=== PATIENT | male | born 1990 | race Caucasian/White ===

== ENCOUNTER 2022-11-19 14:26 | Emergency (ER) | payer MEDICAID, SELFPAY ==
[2022-11-19 14:45] VITALS: BP 121/74; BP 122/80; PULSE 77; PULSE 86; RESP 16; TEMP 37.2; O2SAT 96; BMI 23.8
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
[2022-11-19 14:57] LABS: MANUAL DIFF FLAG NO
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
[2022-11-19 15:03] LABS: Basophils Absolute Auto 0.1 X10*3/uL (0.0-0.2); Basophils Percent Auto 0.5 % (0-2); Eosinophils Absolute Auto 0.1 X10*3/uL (0.0-0.4); Eosinophils Percent Auto 1.1 % (0-4); Hematocrit 42.7 % (42.0-52.0); Imm Gran Abs Auto 0.05 X10*3/uL (0.00-0.03); Imm Gran Pct Auto 0.4 % (0.0-0.4); Lymphocytes Absolute Auto 2.1 X10*3/uL (1.2-4.9); Lymphocytes Percent Auto 15.6 % (20-40); Mean Corpuscular HGB Conc 32.8 g/dl (31.0-36.0); Mean Corpuscular Hemoglobin 28.9 pg (27.0-33.0); Mean Corpuscular Volume 88.2 fL (80.0-98.0); Mean Platelet Volume 9.4 fL (9.4-12.4); Monocytes Absolute Auto 0.6 X10*3/uL (0.1-1.2); Monocytes Percent Auto 4.7 % (2-11); Neutrophils Absolute Auto 10.3 x10*3/uL (2.0-8.3); Neutrophils Percent Auto 77.7 % (45-73); Platelet Count 363 X10*3/uL (160-400); Red Blood Count 4.84 X10*6/uL (4.60-5.80); Red Cell Distribution Width 13.3 % (11.0-16.0); White Blood Count 13.2 X10*3/uL (4.8-10.8)
[2022-11-19] MEDS: Diphth,Pertus(ACell),Tet Adult 0.5 ML SYRINGE IM (15:12)
[2022-11-19] MEDS: 0.9 % Sodium Chloride 1,000 ML 999 ML IVCONT (15:12)
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
[2022-11-19] MEDS: Piperacillin Sodium/Tazobactam 3.375 GM in 0.9 % Sodium Chloride 50 ML IV (15:13)
[2022-11-19 15:34] LABS: Alanine Aminotransferase 20 U/L (0-40); Albumin Level 3.7 g/dL (3.5-5.0); Alkaline Phosphatase 98 U/L (39-117); Anion Gap 15 (12-20); Aspartate Amino Transferase 27 U/L (5-37); Bilirubin Direct < 0.2 mg/dL (0.0-0.5); Bilirubin Total 0.5 mg/dL (0.0-1.0); Blood Urea Nitrogen 9 mg/dL (9-16); Calcium 9.2 mg/dL (8.4-10.2); Carbon Dioxide 20 mmol/L (22-29); Chloride 107 mmol/L (96-108); Creatinine Clr Calc Pharmacy 114.2; Estimated Glomerular Filt Rate > 60; Glucose Random 149 mg/dL (60-115); Potassium 4.3 mmol/L (3.3-5.1); Sodium 138 mmol/L (135-145); Total Protein 6.4 g/dL (6.5-8.0)
== END 2022-11-19 16:52 | disposition short-term general hospital (02) ==
PROVIDERS: Emergency Provider Emergency Medicine
DX: S00.81XA Abrasion of other part of head, initial encounter (principal); R51.9 Headache, unspecified; X99.1XXA Assault by knife, initial encounter; Y93.9 Activity, unspecified; Y92.9 Unspecified place or not applicable; Y99.9 Unspecified external cause status; Z23 Encounter for immunization; Z79.899 Other long term (current) drug therapy
CPT/HCPCS: 36415; 80048; 80076; 85025; 90471; 90715; 96361; 96374; 99284; 99285; J2543

== ENCOUNTER 2023-04-16 10:00 | Emergency (ER) | payer MEDICAID, SELFPAY ==
--- NOTE | 2023-04-16 10:02 | ECG_ITS ---
Test Reason : CHEST PAIN Blood Pressure : / mmHG Vent. Rate : 066 BPM Atrial Rate : 066 BPM P-R Int : 130 ms QRS Dur : 094 ms QT Int : 390 ms P-R-T Axes : 063 078 063 degrees QTc Int : 408 ms Normal sinus rhythm Early repolarization Normal ECG When compared with ECG of 23-JUL-2018 14:19, No significant change was found Referred By: Generic ED Physician Electronically Signed By:NICKY MOON
[2023-04-16 10:07] VITALS: BP 108/66; BP 140/76; PULSE 63; PULSE 70; RESP 24; TEMP 37.2; O2SAT 100; O2SAT 98; BMI 21.8
[2023-04-16 10:16] VITALS: BP 118/73; PULSE 80; RESP 16; O2SAT 100
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
[2023-04-16] MEDS: Ondansetron ODT 4 MG TAB.RAPDIS TRANSLINGU (10:47)
--- NOTE | 2023-04-16 10:52 | ED_ITS ---
HPI - Psych General Chief Complaint: Weakness Stated Complaint: Gen weakness, found on loading dock per EMS Time Seen by Provider: 04/16/23 10:22 Source: patient Mode of arrival: EMS Limitations: no limitations History of Present Illness HPI Narrative: 32 yo male sniffing heroin and cocaine sleeping outside an abandoned buidling c/o being in withdrawal having aches and v/d - wants detox. he initially stated he used 2 days ago but then when I explained about precipitated withdrawal he states he thinks he might have used in the past day and cannot give me an accurate time. MD complaint: anxiety and substance abuse Onset (ago): month(s) Duration: intermittent History of same: Yes Relieving factors: none Exacerbating factors: drug use Context: recent drug abuse and significant life stressor Associated psychiatric symptoms: none Associated symptoms: nausea and vomiting Treatments prior to arrival: none Related Data Allergies Allergy/AdvReac Type Severity Reaction Status Date / Time No Known Allergies Allergy Verified 11/19/22 15:11 Review of Systems Review of Systems: Constitutional : No Weight loss, No Fever, No Chills Cardiovascular : No Chest Pain, No SOB, NoEdema Respiratory : No Cough, No Sputum, No Wheezing Gastrointestinal : Positive Nausea, Positive Vomiting, positive Diarrhea, no abdominal Pain, No Hematochezia, No Melena Genitourinary : No Dysuria, No Urinary Frequency, No Hematuria, No Urgency Musculoskeletal : No joint pain, pos Myalgias, No Joint Swelling Skin : No Skin Lesions, No rash Neuro : No Weakness, No Numbness, No Dizziness, No Headache Psych : No Anxiety/Panic, No Depression All other systems reviewed and are negative. ON LICENSE OF [facility] Past Medical History Attestation statement: The following information was validated with the patient. Medical History Asthma Substance abuse Social History Social History Alcohol intake: never Smoked in Last 30 Days: Yes Substance Use Type: Crack/Cocaine, Heroin and Marijuana Advance Directives: No Advance Directives Information Provided: Yes Physical Exam Vital Signs: Vital Signs: Last Vital Signs Temp 99.0 F 04/16/23 10:07 Pulse 57 04/16/23 14:36 Resp 16 04/16/23 14:36 BP 126/77 04/16/23 14:36 Pulse Ox 99 04/16/23 14:36 O2 Del Method Room Air 04/16/23 14:36 BMI result Body Mass Index 21.8 Appearance: Alert. Oriented X3. No acute distress. anxious appears uncomfort able. unkempt and disheveled Eyes: Pupils equal, round and reactive to light. ENT: Pharynx normal. Neck: Normal inspection. Neck supple. CVS: Normal heart rate and rhythm. Pulses normal. Respiratory: No respiratory distress. Breath sounds normal. Abdomen: Soft and nontender. Skin: Skin warm and clammy Normal skin color. Normal skin turgor. Extremities: No lower extremity edema. Neuro: Oriented X 3. No motor deficit. No sensory deficit. Course Course Course Narrative: Physician observation started at 337pm. Patient placed in physician observation because the patient needed more time for our recovery team to help with detox. At the time observation was started the patient's vitals were stable, patient is alert and oriented but, Neuro: nonfocal, CV RRR, Lungs clear Medications Administered Discontinued Medications Generic Name Dose Route Start Last Admin Trade Name Mikal PRN Reason Stop Dose Admin Methadone HCl 20 mg 04/16/23 11:00 04/16/23 10:53 Methadone Hcl 20 Mg/2 Ml Oral.Conc PO 04/16/23 11:01 20 mg ONCE ONE Administration Ondansetron HCl 4 mg 04/16/23 10:37 04/16/23 10:47 Ondansetron Odt 4 Mg Tab.Rapdis TRANSLINGU 04/16/23 10:38 4 mg ONCE ONE Administration Medical Decision Making Medical Decision Making [facility] Narrative: 32 yo male with hx of substance abuse here homeless and showing signs of withdrawal he is unfortunately not a candidate for suboxone as he is not reliable with his timeline and it as changed I do not want to precipitate withdrawal. He is uncomfortable and I am going to start him on methadone at this time and obtain basic labs - our addiction medicine team is aware of his detox request at this time. Differential Diagnosis Differential Diagnoses: The differential diagnosis associated with the presentation includes withdrawal, substance abuse, poor social support Admission/Observation Consideration of admission/observation: Escalation of care including admission/observation considered Consult Healthcare Provider Management of the patient was discussed with: Behavioral Health Provider Lab Data [facility] Lab Attestation statement: I reviewed the patient's lab results. 04/16/23 11:09 04/16/23 11:09 Labs: Lab Results 04/16/23 04/16/23 Range/Units 11:09 11:09 WBC 11.1 H (4.8-10.8) X10*3/uL RBC 5.64 (4.60-5.80) X10*6/uL Hgb 16.1 (14.0-18.0) g/dl Hct 47.2 (42.0-52.0) % MCV 83.7 (80.0-98.0) fL MCH 28.5 (27.0-33.0) pg MCHC 34.1 (31.0-36.0) g/dl RDW 12.9 (11.0-16.0) % Plt Count 332 (160-400) X10*3/uL MPV 9.0 L (9.4-12.4) fL Immature Gran % (Auto) 0.6 H (0.0-0.4) % Neut % (Auto) 75.8 H (45-73) % Lymph % (Auto) 18.1 L (20-40) % [place] % (Auto) 4.8 (2-11) % Eos % (Auto) 0.4 (0-4) % Baso % (Auto) 0.3 (0-2) % Lymph # (Auto) 2.0 (1.2-4.9) X10*3/uL [place] # (Auto) 0.5 (0.1-1.2) X10*3/uL Eos # (Auto) 0.0 (0.0-0.4) X10*3/uL Baso # (Auto) 0.0 (0.0-0.2) X10*3/uL Abs Immat Gran (auto) 0.07 H (0.00-0.03) X10*3/uL Absolute Neuts (auto) 8.5 H (2.0-8.3) x10*3/uL Absolute Nucleated RBC 0.000 (0.0-0.012) X10*3/uL Nucleated RBC % (auto) 0.0 (0.0-0.2) /100WBC Sodium 138 (135-145) mmol/L Potassium 4.0 (3.3-5.1) mmol/L Chloride 106 (96-108) mmol/L Carbon Dioxide 24 (22-29) mmol/L Anion Gap 12 (12-20) BUN 8 L (9-16) mg/dL Creatinine 0.92 (0.5-1.4) mg/dL Estim Creat Clear Calc 111.4 Estimated GFR > 60 Random Glucose 113 (60-115) mg/dL Calcium 9.9 D (8.4-10.2) mg/dL Independent Interpretation I performed an independent interpretation of an: EKG Interpretation: Rate: 66 Rhythm: NSR [place]: normal Normal P waves. Normal DAREN. Normal QRS complex. ST T wave : early repolarization otherwise normal qTC: normal 408 prior studies: normal The study has been interpreted contemporaneously by me. . Independent Historian Clinical information obtained from an independent historian. History obtained from or confirmed by: EMS External Record Review External record reviewed: Inpatient record Social Determinants Patient?s care significantly limited by Social Determinants of Health including: Inadequate housing, Low income and Problems related to primary support group Discharge Plan Discharge Clinical Impression: Opiate withdrawal Patient Disposition: Still a Patient Instructions: Opioid Use Disorder (ED), Opioid Withdrawal (ED) Additional Instructions: you had stable labs while in the ED and were given zofran and 20mg methadone at [facility] on 04/16/23.
[2023-04-16] MEDS: methADONE HCl 20 MG/2 ML ORAL.CONC PO (10:53)
--- NOTE | 2023-04-16 11:04 | PC.NURSE ---
pt found on loading dock from abandoned building, reporting weakness, nausea, and diarrhea x2 days. pt a&o, lethargic, but arouses to verbal and tactile stiimuli. answers questions with some encouragement. reporting full body pain, moaning and tossing around in bed. medications ordered per Dr. Rios. pt medicated per oct. pt currently resting quietly on stretcher in no apparent distress. call kelley within reach. all pt needs met misha
[2023-04-16 11:14] LABS: MANUAL DIFF FLAG NO
[2023-04-16 11:17] LABS: Basophils Percent Auto 0.3 % (0-2); Eosinophils Percent Auto 0.4 % (0-4); Hematocrit 47.2 % (42.0-52.0); Hemoglobin 16.1 g/dl (14.0-18.0); Imm Gran Abs Auto 0.07 X10*3/uL (0.00-0.03); Imm Gran Pct Auto 0.6 % (0.0-0.4); Lymphocytes Percent Auto 18.1 % (20-40); Mean Corpuscular HGB Conc 34.1 g/dl (31.0-36.0); Mean Corpuscular Hemoglobin 28.5 pg (27.0-33.0); Mean Corpuscular Volume 83.7 fL (80.0-98.0); Monocytes Absolute Auto 0.5 X10*3/uL (0.1-1.2); Monocytes Percent Auto 4.8 % (2-11); Neutrophils Absolute Auto 8.5 x10*3/uL (2.0-8.3); Neutrophils Percent Auto 75.8 % (45-73); Platelet Count 332 X10*3/uL (160-400); Red Blood Count 5.64 X10*6/uL (4.60-5.80); Red Cell Distribution Width 12.9 % (11.0-16.0); White Blood Count 11.1 X10*3/uL (4.8-10.8)
[2023-04-16 11:29] LABS: Anion Gap 12 (12-20); Blood Urea Nitrogen 8 mg/dL (9-16); Calcium 9.9 mg/dL (8.4-10.2); Carbon Dioxide 24 mmol/L (22-29); Chloride 106 mmol/L (96-108); Creatinine Clr Calc Pharmacy 111.4; Estimated Glomerular Filt Rate > 60; Glucose Random 113 mg/dL (60-115); Sodium 138 mmol/L (135-145)
--- NOTE | 2023-04-16 13:42 | MHC.RECOVSUP ---
Addendum entered by Ubaldo Odom 04/16/23 16:12: ATS bed search exhausted, pt was provided last dose letter and list of methadone clinics to follow up with in the community. Pt has no other questions or concerns at this time, Provider aware. Original Note: Met with pt in ED9 who is here for GIANNA. Pt reports having smoked about 1-2 bundles of heroin daily but has not used for the last 2 days. Pt is interested in Methadone and was last in ATS in the beginning of the year at [facility]. Pt has had 2 OD with most recent being 1 year ago, pt is currently interested in ATS and is willing to go to any facility. ATS bed search in process. Pt has no other questions or concerns at this time.
[2023-04-16 14:36] VITALS: BP 126/77; PULSE 57; RESP 16; O2SAT 99
--- NOTE | 2023-04-16 15:08 | PC.NURSE ---
pt sleeping, no apparent distress. call kelley within reach. rr even/unlabored
== END 2023-04-16 17:48 | disposition still patient (30) ==
PROVIDERS: Emergency Provider Emergency Medicine
DX: F11.23 Opioid dependence with withdrawal (principal); F14.10 Cocaine abuse, uncomplicated; F12.90 Cannabis use, unspecified, uncomplicated; J45.909 Unspecified asthma, uncomplicated; Z71.51 Drug abuse counseling and surveillance of drug abuser
CPT/HCPCS: 36415; 80048; 85025; 93005; 99283; 99284

== ENCOUNTER 2024-03-06 01:44 | Emergency (ER) | payer MEDICAID, SELFPAY ==
--- NOTE | 2024-03-06 | ECG_ITS ---
Test Reason : OVEDOSE Blood Pressure : / mmHG Vent. Rate : 080 BPM Atrial Rate : 080 BPM P-R Int : 132 ms QRS Dur : 098 ms QT Int : 352 ms P-R-T Axes : 064 071 049 degrees QTc Int : 405 ms Normal sinus rhythm Normal ECG When compared with ECG of 16-APR-2023 10:18, No significant change was found Referred By: Guido Meek Electronically Signed By:EDVIN STEWART
[2024-03-06 01:55] VITALS: BP 112/84; BP 147/88; PULSE 110; PULSE 90; RESP 14; TEMP 36.4; O2SAT 95; O2SAT 96; BMI 24.0
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
--- NOTE | 2024-03-06 02:31 | ED.OVERDOSE ---
HPI - Overdose General Chief Complaint: Overdose Stated Complaint: overdose Time Seen by Provider: 03/06/24 02:09 Source: EMS Mode of arrival: EMS Limitations: no limitations History of Present Illness ED Provider: casandra HARTLEY Narrative: Patient history of substance abuse likely use cocaine and heroin prior to arrival was found unconscious by bystander was given 12 mg of Narcan by PD patient is alert and vomiting after arrival to the ER at this time patient is sleepy Related Data Allergies Allergy/AdvReac Type Severity Reaction Status Date / Time No Known Allergies Allergy Unverified 03/06/24 01:58 Review of Systems Review of Systems: Yes all other systems are reviewed and are negative PMFSH Past Medical History Medical History Substance abuse Asthma Social History Social History Alcohol intake: never Smoked in Last 30 Days: No Use of substances other than those prescribed or required for medical reasons: Yes Substance Use Type: Crack/Cocaine, Heroin and Marijuana Advance Directives: No Advance Directives Information Provided: No Physical Exam Vital Signs: Vital Signs: Last Vital Signs Temp 97.2 F 03/06/24 06:23 Pulse 77 03/06/24 06:23 Resp 13 03/06/24 06:23 BP 106/60 03/06/24 06:23 Pulse Ox 98 03/06/24 06:23 O2 Del Method Room Air 03/06/24 06:23 BMI result Body Mass Index 24.0 Appearance: Lethargic sleepy easily arousable. No acute distress. Eyes: PERRLA, ENT: Pharynx normal. Oral Mucosa moist atraumatic Neck: Normal inspection. Neck supple. CVS: Normal heart rate and rhythm. Pulses normal. Respiratory: No respiratory distress. Equal air entry bilateral, no wheezing/rales/rhonchi friction hugo on the mid sternum Abdomen: Soft and nontender. Bowel sounds are present, no mass palpable, no CVA tenderness Skin: Skin warm and dry. Normal skin color. Normal skin turgor. Extremities: No lower extremity edema. No calf tenderness Neuro: Lethargic in the ED arousable moving all 4 extremities Medications Administered Discontinued Medications Generic Name Dose Route Start Last Admin Trade Name Freq PRN Reason Stop Dose Admin Sodium Chloride 1,000 mls @ 999 mls/hr 03/06/24 02:09 03/06/24 03:50 Ns IV 03/06/24 03:09 Infused .Q1H1M ONE Infusion Medical Decision Making Medical Decision Making [facility] Narrative: Patient is sleeping but easily arousable taking p.o. fluids will discharge patient home refused to go to detox Lab Data [facility] Lab Attestation statement: I reviewed the patient's lab results. 03/06/24 02:29 03/06/24 02:28 Labs: Lab Results 03/06/24 03/06/24 Range/Units 02:28 02:29 WBC 12.0 H (4.8-10.8) X10*3/uL RBC 4.40 L D (4.60-5.80) X10*6/uL Hgb 12.9 L (14.0-18.0) g/dl Hct 37.8 L (42.0-52.0) % MCV 85.9 (80.0-98.0) fL MCH 29.3 (27.0-33.0) pg MCHC 34.1 (31.0-36.0) g/dl RDW 13.0 (11.0-16.0) % Plt Count 325 (160-400) X10*3/uL MPV 8.8 L (9.4-12.4) fL Immature Gran % (Auto) 0.3 (0.0-0.4) % Neut % (Auto) 63.3 (45-73) % Lymph % (Auto) 25.3 (20-40) % [place] % (Auto) 8.7 (2-11) % Eos % (Auto) 1.9 (0-4) % Baso % (Auto) 0.5 (0-2) % Lymph # (Auto) 3.0 (1.2-4.9) X10*3/uL [place] # (Auto) 1.0 (0.1-1.2) X10*3/uL Eos # (Auto) 0.2 (0.0-0.4) X10*3/uL Baso # (Auto) 0.1 (0.0-0.2) X10*3/uL Abs Immat Gran (auto) 0.04 H (0.00-0.03) X10*3/uL Absolute Neuts (auto) 7.6 (2.0-8.3) x10*3/uL Absolute Nucleated RBC 0.000 (0.0-0.012) X10*3/uL Nucleated RBC % (auto) 0.0 (0.0-0.2) /100WBC Sodium 139 (135-145) mmol/L Potassium 3.5 (3.3-5.1) mmol/L Chloride 107 (96-108) mmol/L Carbon Dioxide 23 (22-29) mmol/L Anion Gap 13 (12-20) BUN 9 (9-16) mg/dL Creatinine 0.83 (0.5-1.4) mg/dL Estim Creat Clear Calc 137.6 Estimated GFR > 60 Random Glucose 77 (60-115) mg/dL Calcium 9.1 D (8.4-10.2) mg/dL Magnesium 2.2 (1.6-2.6) mg/dL Total Bilirubin 0.6 (0.0-1.0) mg/dL AST 33 (5-37) U/L ALT 21 (0-40) U/L Alkaline Phosphatase 75 (39-117) U/L Total Protein 6.5 (6.5-8.0) g/dL Albumin 3.9 (3.5-5.0) g/dL Discharge Plan Discharge Clinical Impression: Polysubstance abuse Patient Disposition: Home, Self-Care Instructions: Polysubstance Abuse (ED) Additional Instructions: Follow with detox Print Language: Swedish
[2024-03-06 02:32] LABS: MANUAL DIFF FLAG NO
[2024-03-06 02:33] LABS: Basophils Absolute Auto 0.1 X10*3/uL (0.0-0.2); Basophils Percent Auto 0.5 % (0-2); Eosinophils Absolute Auto 0.2 X10*3/uL (0.0-0.4); Eosinophils Percent Auto 1.9 % (0-4); Hematocrit 37.8 % (42.0-52.0); Hemoglobin 12.9 g/dl (14.0-18.0); Imm Gran Abs Auto 0.04 X10*3/uL (0.00-0.03); Imm Gran Pct Auto 0.3 % (0.0-0.4); Lymphocytes Percent Auto 25.3 % (20-40); Mean Corpuscular HGB Conc 34.1 g/dl (31.0-36.0); Mean Corpuscular Hemoglobin 29.3 pg (27.0-33.0); Mean Corpuscular Volume 85.9 fL (80.0-98.0); Mean Platelet Volume 8.8 fL (9.4-12.4); Monocytes Percent Auto 8.7 % (2-11); Neutrophils Absolute Auto 7.6 x10*3/uL (2.0-8.3); Neutrophils Percent Auto 63.3 % (45-73); Platelet Count 325 X10*3/uL (160-400)
[2024-03-06] MEDS: 0.9 % Sodium Chloride 1,000 ML 999 ML IV (02:46)
[2024-03-06 02:48] LABS: Alanine Aminotransferase 21 U/L (0-40); Albumin Level 3.9 g/dL (3.5-5.0); Alkaline Phosphatase 75 U/L (39-117); Anion Gap 13 (12-20); Aspartate Amino Transferase 33 U/L (5-37); Bilirubin Total 0.6 mg/dL (0.0-1.0); Blood Urea Nitrogen 9 mg/dL (9-16); Calcium 9.1 mg/dL (8.4-10.2); Carbon Dioxide 23 mmol/L (22-29); Chloride 107 mmol/L (96-108); Creatinine Clr Calc Pharmacy 137.6; Estimated Glomerular Filt Rate > 60; Glucose Random 77 mg/dL (60-115); Magnesium 2.2 mg/dL (1.6-2.6); Potassium 3.5 mmol/L (3.3-5.1); Sodium 139 mmol/L (135-145); Total Protein 6.5 g/dL (6.5-8.0)
[2024-03-06 06:23] VITALS: BP 106/60; PULSE 77; RESP 13; TEMP 36.2; O2SAT 98
[2024-03-06 07:35] VITALS: BP 106/60; PULSE 77; RESP 13; TEMP 36.2; O2SAT 98
== END 2024-03-06 07:36 | disposition home or self-care (01) ==
PROVIDERS: Emergency Provider Internal Medicine
DX: F19.10 Other psychoactive substance abuse, uncomplicated (principal)
CPT/HCPCS: 36415; 80053; 83735; 85025; 93005; 96360; 99284; 99285

== ENCOUNTER → 2024-03-06 02:29 | Outpatient (BNV) | payer MEDICAID, SELFPAY | PROVIDERS: Emergency Provider Internal Medicine; Visit Provider Internal Medicine | DX: F19.10 Other psychoactive substance abuse, uncomplicated (principal) | CPT/HCPCS: 93010 ==

== ENCOUNTER 2024-05-19 11:38 | Emergency (ER) | payer MEDICAID, SELFPAY ==
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
[2024-05-19 12:02] VITALS: BP 136/88; PULSE 85; O2SAT 98
[2024-05-19 12:15] LABS: MANUAL DIFF FLAG NO
[2024-05-19 12:18] LABS: Basophils Percent Auto 0.3 % (0-2); Eosinophils Absolute Auto 0.1 X10*3/uL (0.0-0.4); Hematocrit 43.1 % (42.0-52.0); Hemoglobin 14.7 g/dl (14.0-18.0); Imm Gran Abs Auto 0.05 X10*3/uL (0.00-0.03); Imm Gran Pct Auto 0.4 % (0.0-0.4); Lymphocytes Absolute Auto 2.3 X10*3/uL (1.2-4.9); Lymphocytes Percent Auto 16.4 % (20-40); Mean Corpuscular HGB Conc 34.1 g/dl (31.0-36.0); Mean Corpuscular Hemoglobin 29.1 pg (27.0-33.0); Mean Corpuscular Volume 85.3 fL (80.0-98.0); Monocytes Absolute Auto 1.1 X10*3/uL (0.1-1.2); Neutrophils Absolute Auto 10.3 x10*3/uL (2.0-8.3); Neutrophils Percent Auto 73.9 % (45-73); Platelet Count 285 X10*3/uL (160-400); Red Blood Count 5.05 X10*6/uL (4.60-5.80); Red Cell Distribution Width 12.5 % (11.0-16.0)
[2024-05-19 12:22] VITALS: BMI 24.4
[2024-05-19 12:23] VITALS: BP 110/78; PULSE 70; RESP 14; TEMP 36.4; O2SAT 97
[2024-05-19 12:26] LABS: INTERNATIONAL NORM RATIO 0.9 (0.9-1.1); Prothrombin Time 11.1 SEC (11.1-13.3)
[2024-05-19] MEDS: iohexoL 350 MG/ML 75 ML INFUS..BTL 85 ML IV (12:42)
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
[2024-05-19 13:08] LABS: Appearance Urine Clear; Color Urine Straw; Glucose Urine UA Negative (Negative); Leukocyte Esterase Urine Negative (Negative); Nitrite Urine Negative (Negative); PH 7.5 (5.0-9.0); Specific Gravity - Urine 1.015 (1.005-1.025); Urine Blood Negative (Negative); Urine Ketones Negative (Negative); Urine Protein Negative (Neg-Trace)
[2024-05-19 13:13] LABS: Amphetamine Screen Urine Not Detected (Not Detect); Barbiturates, Urine Not Detected (Not Detect); Benzodiazepines Screen Urine Not Detected (Not Detect); Buprenorphine Scr Not Detected (Not Detect); Cannabinoid Screen Urine Not Detected (Not Detect); Cocaine Screen Urine POSITIVE (Not Detect); Fentanyl, urine POSITIVE (Not Detect); Methadone Screen, Urine Not Detected (Not Detect); Opiate Screen Urine POSITIVE (Not Detect); Oxycodone Screen Urine Not Detected (Not Detect); Phencyclidine Screen Urine Not Detected (Not Detect)
[2024-05-19 13:23] LABS: Alanine Aminotransferase 18 U/L (0-40); Albumin Level 4.1 g/dL (3.5-5.0); Alkaline Phosphatase 91 U/L (39-117); Anion Gap 12 (12-20); Aspartate Amino Transferase 31 U/L (5-37); Bilirubin Direct 0.2 mg/dL (0.0-0.5); Bilirubin Total 0.8 mg/dL (0.0-1.0); Blood Urea Nitrogen 8 mg/dL (9-16); Calcium 9.3 mg/dL (8.4-10.2); Carbon Dioxide 26 mmol/L (22-29); Chloride 104 mmol/L (96-108); Creatinine Clr Calc Pharmacy 143.8; Estimated Glomerular Filt Rate > 60; Ethanol < 10 mg/dL; Glucose Random 99 mg/dL (60-115); Lipase 6 U/L (8-78); Potassium 3.8 mmol/L (3.3-5.1); Sodium 138 mmol/L (135-145); Total Protein 7.1 g/dL (6.5-8.0)
[2024-05-19 14:14] VITALS: BMI 24.4
[2024-05-19] MEDS: Lidocaine HCl 1 % MPF 5 ML VIAL INFILTRATI (15:01)
--- NOTE | 2024-05-19 19:49 | PC.NURSE ---
pt placed in splint by NADINE Minor, pt resting quietly on stretcher-- provided with crackers, sandwich, and beverage. addiction consult ordered. Cooperative with care- call kelley within reach
[2024-05-19 20:18] VITALS: BP 110/76; PULSE 67; RESP 16; TEMP 36.9; O2SAT 98
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
[2024-05-19] MEDS: oxyCODONE HCl Immed Release 5 MG TABLET 10 MG PO (21:32)
--- NOTE | 2024-05-20 00:44 | PC.NURSE ---
Pt requested and given drink Pt yelling out hello Pt reminded to use the call kelley as it will be the most effective way to get help when he needs it Plan of care ongoing.
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
[2024-05-20 06:44] VITALS: BP 121/81; PULSE 76; RESP 17; TEMP 36.7; O2SAT 98
[2024-05-20 07:25] VITALS: BP 110/71; PULSE 70; RESP 17; O2SAT 98
--- NOTE | 2024-05-20 07:59 | PC.NURSE ---
Pt has been diaphoretic on and off since this RN arrival. VSS no tremor. Is arousable to voice and can state name and follow simple commands. Doesn't have any complaints. Provider is aware.
--- NOTE | 2024-05-20 08:23 | MHC.EDTECH ---
BELONGINGS IN DEC WITH OFFICER SOURAV @ THIS TIME
[2024-05-20 08:51] VITALS: BP 129/84; PULSE 89; RESP 16; O2SAT 98
--- NOTE | 2024-05-20 09:04 | PC.NURSE ---
ibuprofen held. Pt has been sleeping.
--- NOTE | 2024-05-20 09:47 | PC.NURSE ---
recovery coaches at bedside. Pt has been more alert in last 30 mnutes c/o abd pain.
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
--- NOTE | 2024-05-20 09:54 | PHA.MEDREC ---
Addendum entered by Garima Hagan RPh 05/20/24 10:08: Med rec was reviewed by Michelle. Original Note: Pharmacy Consult ? Medication Reconciliation Pharmacy has completed the medication reconciliation.
[2024-05-20] MEDS: methADONE HCl 20 MG/2 ML ORAL.CONC 30 MG PO (10:01)
--- NOTE | 2024-05-20 11:24 | MHC.RECOVRN ---
Met with pt in ED22H. Pt AOx4 and cooperative during 1:1 discussion. Pt presented with beads of sweat on face, reporting body aches and general discomfort. Pt got 30mg of methadone with some effect. Notified provider that withdrawal symptoms were still out of control and the plan is to give pt another 10mg of methadone for a total dose of 40mg for today. Pt treatment seeking, wants detox, and referral packet faxed to [facility] for review.
[2024-05-20] MEDS: methADONE HCl 20 MG/2 ML ORAL.CONC 10 MG PO (12:01)
[2024-05-20 14:00] VITALS: BP 147/83; PULSE 69; RESP 18; TEMP 37; O2SAT 99
--- NOTE | 2024-05-20 15:55 | MHC.RECOVRN ---
Pt is on a waiting list for [facility], no available detox beds today. Referred pt to [facility] financial solutions advisor to help pt set up [facility] again as pt's insurance is currently inactive. Pt is to stay overnight and check bed availability back tomorrow.
--- NOTE | 2024-05-20 17:13 | PM.EVENT ---
Event Note Date of Service: 05/20/24 Event Note: Addiction note Patient awaiting possible admission to [facility] facility on 05/21. will be working with financial counselor to sign up for insurance methadone 50mg ordered for AM on 05/21 recovery support to follow up in the morning Time Spent With Patient Time: Total time managing care of this patient today ____ minutes.
[2024-05-20 22:00] VITALS: BP 128/68; PULSE 87; RESP 16; TEMP 37.3; O2SAT 99
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
[2024-05-21 05:37] VITALS: BP 124/69; PULSE 78; RESP 16; TEMP 37.1; O2SAT 98
[2024-05-21 08:52] VITALS: BP 96/60; PULSE 87; RESP 16; TEMP 37.2; O2SAT 98
[2024-05-21] MEDS: methADONE HCl 20 MG/2 ML ORAL.CONC 50 MG PO (08:54)
--- NOTE | 2024-05-21 09:18 | PC.NURSE ---
patient resting quietly in ED bed 22h. patient is alert and oriented x3. patient given breakfast this morning, medicated per MAR. VSS. patient has splint on right leg. awaiting insurance auth for detox placement.
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
--- NOTE | 2024-05-21 14:22 | MHC.RECOVRN ---
Pt sent with resources to [facility] via [employer].
--- NOTE | 2024-05-21 14:48 | MHC.RECOVRN ---
Nina the [facility] junior financial analyst notified tw that pt now has an active [employer] insurance.
== END 2024-05-21 14:53 | disposition home or self-care (01) ==
PROVIDERS: Physician Assistant; Emergency Provider Emergency Medicine
DX: S81.812A Laceration without foreign body, left lower leg, initial encounter (principal); S22.42XA Multiple fractures of ribs, left side, initial encounter for closed fracture; S51.012A Laceration without foreign body of left elbow, initial encounter; M25.572 Pain in left ankle and joints of left foot; R51.9 Headache, unspecified; M54.2 Cervicalgia; M79.604 Pain in right leg; R07.89 Other chest pain; M25.522 Pain in left elbow; F14.10 Cocaine abuse, uncomplicated; Y04.2XXA Assault by strike against or bumped into by another person, initial encounter; Y93.89 Activity, other specified; Y92.89 Other specified places as the place of occurrence of the external cause; Y99.8 Other external cause status; Z79.899 Other long term (current) drug therapy
CPT/HCPCS: 36415; 70450; 71260; 72125; 73080; 73590; 73610; 74177; 80048; 80076; 80307; 81003; 83690; 85025; 85610; 99285; Q9967

== ENCOUNTER 2025-03-02 22:28 | Emergency (ER) | payer MEDICAID, SELFPAY ==
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
[2025-03-02 22:30] VITALS: BP 111/79; PULSE 84; RESP 20; TEMP 36.4; O2SAT 99; BMI 31.9
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
[2025-03-02 23:31] LABS: Hematocrit 40.0 % (42.0-52.0); Hemoglobin 14.5 g/dl (14.0-18.0); Imm Gran Abs Auto 0.09 X10*3/uL (0.00-0.03); Imm Gran Pct Auto 0.5 % (0.0-0.4); Lymphocytes Absolute Auto 5.0 X10*3/uL (1.2-4.9); Mean Corpuscular HGB Conc 36.3 g/dl (31.0-36.0); Mean Corpuscular Hemoglobin 29.7 pg (27.0-33.0); Mean Corpuscular Volume 81.8 fL (80.0-98.0); NRBC Abs Auto 0.000 X10*3/uL (0.0-0.012); NRBC Pct Auto 0.0 /100WBC (0.0-0.2); Platelet Count 392 X10*3/uL (160-400); Red Blood Count 4.89 X10*6/uL (4.60-5.80); SCAN SMEAR FLAG 1; White Blood Count 18.1 X10*3/uL (4.8-10.8)
--- NOTE | 2025-03-02 23:37 | PC.NURSE ---
Took over care from NATASHA Tang. ,medicated per mar for pain management , awaiting images
[2025-03-02 23:42] LABS: MANUAL DIFF FLAG SCAN
[2025-03-02 23:46] LABS: Alanine Aminotransferase 24 U/L (0-40); Albumin Level 4.9 g/dL (3.5-5.0); Alkaline Phosphatase 118 U/L (39-117); Anion Gap 20 (12-20); Aspartate Amino Transferase 45 U/L (5-37); Blood Urea Nitrogen 16 mg/dL (9-16); Calcium 9.4 mg/dL (8.4-10.2); Carbon Dioxide 16 mmol/L (22-29); Chloride 106 mmol/L (96-108); Creatinine Clr Calc Pharmacy 98.6; Estimated Glomerular Filt Rate > 60; Potassium 3.6 mmol/L (3.3-5.1); Sodium 138 mmol/L (135-145); Total Protein 7.9 g/dL (6.5-8.0)
[2025-03-02 23:56] VITALS: BP 131/79; PULSE 84
--- NOTE | 2025-03-03 00:19 | PC.NURSE ---
pt medicated per mar, pt taken to CT SCan.
--- NOTE | 2025-03-03 00:27 | PC.NURSE ---
pt back from CT SCan, pt has positive CMS and pedal pulses to bilateral extremities
[2025-03-03] MEDS: iohexoL 350 MG/ML 100 ML INFUS..BTL 85 ML IV (00:36)
--- NOTE | 2025-03-03 02:14 | PC.NURSE ---
medicated for pain management, Notified provider gerhard Stout complain of Right shoulder pain
[2025-03-03 02:15] VITALS: BP 127/58; PULSE 88; RESP 20; TEMP 36.8; O2SAT 99
[2025-03-03 02:32] LABS: Appearance Urine Clear; Glucose Urine UA Negative (Negative); PH 5.5 (5.0-9.0); Specific Gravity - Urine >= 1.030 (1.005-1.025)
[2025-03-03 02:42] LABS: Cannabinoid Screen Urine POSITIVE (Not Detect)
--- NOTE | 2025-03-03 03:43 | PC.NURSE ---
pt cleared C-spine, okay for pt to have something to eat per provider.
[2025-03-03 04:04] VITALS: BP 124/77; PULSE 73; RESP 18; TEMP 36.8; O2SAT 100
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
--- NOTE | 2025-03-03 04:10 | PC.NURSE ---
Iv removed, reviewed discharge instructions with pt , pt verbalized understanding, no sign distress.
[2025-03-03 04:30] VITALS: BP 124/77; PULSE 73; RESP 18; TEMP 36.8; O2SAT 100
--- NOTE | 2025-03-03 04:30 | PC.NURSE ---
pt wheeled out to lobby, awaiting ride.
== END 2025-03-03 04:31 | disposition home or self-care (01) ==
PROVIDERS: Physician Assistant; Emergency Provider Emergency Medicine
DX: M25.571 Pain in right ankle and joints of right foot (principal); M79.641 Pain in right hand; M79.604 Pain in right leg; S50.311A Abrasion of right elbow, initial encounter; S60.511A Abrasion of right hand, initial encounter; T14.8XXA Other injury of unspecified body region, initial encounter; V48.1XXA Car passenger injured in noncollision transport accident in nontraffic accident, initial encounter; Y93.01 Activity, walking, marching and hiking; Y92.414 Local residential or business street as the place of occurrence of the external cause; Y99.9 Unspecified external cause status
CPT/HCPCS: 36415; 70450; 71260; 72125; 73130; 73560; 73610; 74177; 80053; 80307; 81001; 85025; 86850; 86900; 86901; 93005; 96361; 96374; 96375; 96376; 99285; J1171; J2270; J2405; Q9967

== ENCOUNTER → 2025-03-02 22:36 | Outpatient (BNV) | payer MEDICAID, SELFPAY | PROVIDERS: Emergency Provider Emergency Medicine; Visit Provider Radiology Diagnostic Radiology | DX: S99.912A Unspecified injury of left ankle, initial encounter (principal); S69.92XA Unspecified injury of left wrist, hand and finger(s), initial encounter; S80.911A Unspecified superficial injury of right knee, initial encounter; Z04.3 Encounter for examination and observation following other accident | CPT/HCPCS: 73130; 73560; 73610 ==

== ENCOUNTER → 2025-03-02 22:51 | Outpatient (BNV) | payer MEDICAID, SELFPAY | PROVIDERS: Emergency Provider Emergency Medicine; Visit Provider Internal Medicine Cardiovascular Disease | DX: R07.9 Chest pain, unspecified (principal); V09.20XA Pedestrian injured in traffic accident involving unspecified motor vehicles, initial encounter | CPT/HCPCS: 93010 ==

== ENCOUNTER → 2025-03-03 | Outpatient (BNV) | payer MEDICAID, SELFPAY | PROVIDERS: Emergency Provider Emergency Medicine; Visit Provider Radiology Diagnostic Radiology | DX: M51.46 Schmorl's nodes, lumbar region (principal); J98.11 Atelectasis; M51.44 Schmorl's nodes, thoracic region; R51.9 Headache, unspecified | CPT/HCPCS: 70450; 71260; 72125; 74177 ==

== ENCOUNTER 2025-03-16 15:25 | Emergency (ER) | payer MEDICAID, SELFPAY ==
[2025-03-16 16:34] VITALS: BP 115/79; PULSE 87; RESP 16; TEMP 36.6; O2SAT 99; BMI 26.1
--- NOTE | 2025-03-16 16:36 | ED_ITS ---
HPI - General Adult General Chief complaint: Wound/Laceration Stated complaint: R- Cheek- Ingrown Hair Time Seen by Provider: 03/16/25 21:07 Source: patient Mode of arrival: ambulatory Limitations: no limitations History of Present Illness ED Provider: Girish MCCOY HPI narrative: The patient is a 34-year-old male presenting to the ED reporting 2 days ago he felt some pain and warmth on his right cheek, patient reports he felt fatigued and fell asleep, upon waking he noted white purulent material draining from the area with increasing pain. The patient denies associated fever/chills, nausea, vomiting or other systemic complaint, patient denies any pain or irritation of the buccal mucosa on the affected side. The patient reports taking ibuprofen for pain who presents to the ED due to concern for infection. Related Data Previous Rx's ?Medication ?Instructions ?Recorded cyclobenzaprine 10 mg tablet 10 mg PO TID PRN muscle s pasm #14 03/03/25 tabs ibuprofen 600 mg tablet 600 mg PO Q8H PRN fever or p ain 03/03/25 #30 tabs clindamycin HCl 150 mg capsule 450 mg (3 x 150 mg) PO TID 5 days 03/16/25 (Cleocin HCl) #45 caps Allergies Allergy/AdvReac Type Severity Reaction Status Date / Time acetaminophen Allergy Unknown Verified 03/16/25 16:38 Penicillins Allergy Unknown Verified 03/16/25 16:38 Anesthesia Allergy Unknown Uncoded 03/16/25 16:38 Review of Systems 2 Review of Systems: Yes all other systems are reviewed and are negative PMFSH Past Medical History Medical History Substance abuse Asthma Social History Social History Alcohol intake: never 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 Vital signs as documented. HEAD: There is an approximate 1.5 cm x 2 cm ovoid area of superficial purulence noted to the right cheek at the border of the patient's avalos, there is mild drainage from the inferior aspect of the purulent area, there is surrounding erythema with associated tenderness. Head is otherwise atraumatic, normocephalic. EYES: EOMs grossly intact, pupils equal, conjunctiva clear, no exudate. ENT: Nares patent, no discharge. Airway patent, no audible stridor, visible mucosa is pink and moist without noted lesions, specifically no lesions or ulceration of the right buccal mucosa. NECK: trachea is midline, no obvious masses or gross abnormalities. CHEST: Symmetric movement, normal appearance. LUNGS: Non-labored work of breathing. CARDIAC: No evidence of hypoperfusion. ABDOMEN: Nondistended, no obvious injury. : Deferred. EXTREMITIES: Moves all extremities spontaneously without reported pain. No obvious injury or deformity noted. NEURO: Alert and oriented x3, CN II-XII appear grossly intact. Cerebellar Functioning grossly intact. Speech clear and appropriate. SKIN: Warm, dry, color appropriate. No rashes or lesions noted. Course Course Course Narrative: 03/16/25 1637 NADINE Lynn This is a Rapid Medical Examination (RME) performed by Delores Barnard PA-C in triage. Full HPI, ROS, assessment and treatment plan per primary provider in the Main ED. Hx: 34 yo M here w/ concern for ingrown hair to R cheek x2 days. slept at a friends house, woke up with bump to right cheek. unsure if it's an ingrown hair v insect bite. does not recall being bitten by anything. the area has been expanding, becoming painful and now draining green/yellow. PE/vitals: noted swelling to right check with pointing, draining foul smelling, purulent discharge, indurated. Plan: labs Medications Administered Discontinued Medications Generic Name Dose Route Start Last Admin Trade Name Freq PRN Reason Stop Dose Admin Bacitracin 1 appl 03/17/25 00:04 03/17/25 00:08 Bacitracin Oint 0.9 Gm Packet TOPICAL 03/17/25 00:05 1 appl ONCE ONE Administration Protocol Procedures Abscess I/D Site: face Side (if applicable): right Sedation/analgesia: none Technique: other (Lifting of scab/eschar) Amount of fluid expressed (mL): 1 Sent for culture/gram staining?: No Irrigation: No Packing used?: none Medical Decision Making Medical Decision Making [facility] Narrative: 10:37 PM 03/16/2025 (Delores MCCOY): The patient is a 34-year-old male presenting to the ED for evaluation of a 1.5 cm x 2 cm ovoid area of subepidermal purulence with surrounding erythema noted on his right cheek which developed 2 days ago. The patient denies associated systemic complaint, arrived to the ED afebrile and normotensive. Laboratory evaluation reveals mild leukocytosis of 12,000, no evidence of significant anemia, electrolyte abnormality, or ALISE. Exam is consistent with developing superficial abscess vs carbuncle with surrounding cellulitis. The patient will be treated with antibiotics with MRSA coverage. We will also attempt to unroof the purulent area to allow drainage and improve pain. 12:05 AM 03/17/2025 (Delores MCCOY): Purulent area was partially unroofed with small amount of pus expressed, no indication for packing, patient will have bacitracin ointment applied and we will be discharged with plan as described above. Lab Data [facility] Lab Attestation statement: I reviewed the patient's lab results. 03/16/25 17:12 03/16/25 17:12 Labs: Lab Results 03/16/25 Range/Units 17:12 WBC 12.1 H (4.8-10.8) X10*3/uL RBC 4.62 (4.60-5.80) X10*6/uL Hgb 13.3 L (14.0-18.0) g/dl Hct 40.1 L (42.0-52.0) % MCV 86.8 (80.0-98.0) fL MCH 28.8 (27.0-33.0) pg MCHC 33.2 (31.0-36.0) g/dl RDW 13.2 (11.0-16.0) % Plt Count 411 H (160-400) X10*3/uL MPV 8.9 L (9.4-12.4) fL Immature Gran % (Auto) 0.5 H (0.0-0.4) % Neut % (Auto) 63.9 (45-73) % Lymph % (Auto) 25.7 (20-40) % [place] % (Auto) 7.4 (2-11) % Eos % (Auto) 1.8 (0-4) % Baso % (Auto) 0.7 (0-2) % Lymph # (Auto) 3.1 (1.2-4.9) X10*3/uL [place] # (Auto) 0.9 (0.1-1.2) X10*3/uL Eos # (Auto) 0.2 (0.0-0.4) X10*3/uL Baso # (Auto) 0.1 (0.0-0.2) X10*3/uL Abs Immat Gran (auto) 0.06 H (0.00-0.03) X10*3/uL Absolute Neuts (auto) 7.7 (2.0-8.3) x10*3/uL Absolute Nucleated RBC 0.000 (0.0-0.012) X10*3/uL Nucleated RBC % (auto) 0.0 (0.0-0.2) /100WBC Sodium 137 (135-145) mmol/L Potassium 4.4 D (3.3-5.1) mmol/L Chloride 105 (96-108) mmol/L Carbon Dioxide 25 (22-29) mmol/L Anion Gap 11 L (12-20) BUN 13 (9-16) mg/dL Creatinine 0.80 (0.5-1.4) mg/dL Estim Creat Clear Calc 128.8 Estimated GFR > 60 Random Glucose 91 (60-115) mg/dL Calcium 9.5 (8.4-10.2) mg/dL Magnesium 2.2 (1.6-2.6) mg/dL Total Bilirubin 0.9 (0.0-1.0) mg/dL AST 34 (5-37) U/L ALT 20 (0-40) U/L Alkaline Phosphatase 99 (39-117) U/L Total Protein 7.3 (6.5-8.0) g/dL Albumin 4.4 (3.5-5.0) g/dL Prescription Management I considered prescription management with: Pain Medication and Antibiotic Discharge Plan Discharge Clinical Impression: Cellulitis and abscess of face Patient Disposition: Home, Self-Care Instructions: Cellulitis (ED), Abscess (ED) Additional Instructions: Thank you for choosing [facility]'s Emergency Department for your care today. Your exam today is consistent with an infection of a hair follicle which has developed into a abscess with infection of the surrounding skin. At this time there is no evidence of an acute process requiring admission to the hospital or continued ED observation, and it is safe to discharge you home. We were able to unroof some of the area of pus which should improve your discomfort and improve healing. Please keep the area clean. Please take clindamycin as prescribed until it is finished. Please apply bacitracin to the area to help treat the infection. You may take ibuprofen 600mg every 8 hours as needed for any additional pain. Please follow up with your primary care physician for re-evaluation, additional management of your symptoms, and continued preventative care. If you do not have a primary care physician, please call the [facility] at [phone] to establish a new primary care physician. While waiting to establish your new primary care physician, you can call our Walk[facility]in [facility] at [phone] for non-emergency needs. Please return to the emergency department if you develop a severe or sudden change in your symptoms, a fever over 100.4 that does not improve with Tylenol or Ibuprofen, recurrent vomiting, or any other new or worsening symptoms or concerns. Prescriptions: New clindamycin HCl [Cleocin HCl] 150 mg capsule 450 mg PO TID 5 Days Qty: 45 0RF No Action ibuprofen 600 mg tablet 600 mg PO Q8H PRN (Reason: fever or pain) Qty: 30 0RF cyclobenzaprine 10 mg tablet 10 mg PO TID PRN (Reason: muscle spasm) Qty: 14 0RF Discharge Date/Time: 03/17/25 01:00 Print Language: Polish
[2025-03-16 17:15] LABS: MANUAL DIFF FLAG NO
[2025-03-16 17:18] LABS: Hematocrit 40.1 % (42.0-52.0); Hemoglobin 13.3 g/dl (14.0-18.0); Imm Gran Abs Auto 0.06 X10*3/uL (0.00-0.03); Imm Gran Pct Auto 0.5 % (0.0-0.4); Lymphocytes Absolute Auto 3.1 X10*3/uL (1.2-4.9); Mean Corpuscular HGB Conc 33.2 g/dl (31.0-36.0); Mean Corpuscular Hemoglobin 28.8 pg (27.0-33.0); Mean Corpuscular Volume 86.8 fL (80.0-98.0); NRBC Abs Auto 0.000 X10*3/uL (0.0-0.012); NRBC Pct Auto 0.0 /100WBC (0.0-0.2); Platelet Count 411 X10*3/uL (160-400); Red Blood Count 4.62 X10*6/uL (4.60-5.80); White Blood Count 12.1 X10*3/uL (4.8-10.8)
[2025-03-16 17:30] LABS: Alanine Aminotransferase 20 U/L (0-40); Albumin Level 4.4 g/dL (3.5-5.0); Alkaline Phosphatase 99 U/L (39-117); Anion Gap 11 (12-20); Aspartate Amino Transferase 34 U/L (5-37); Blood Urea Nitrogen 13 mg/dL (9-16); Calcium 9.5 mg/dL (8.4-10.2); Carbon Dioxide 25 mmol/L (22-29); Chloride 105 mmol/L (96-108); Creatinine Clr Calc Pharmacy 128.8; Estimated Glomerular Filt Rate > 60; Magnesium 2.2 mg/dL (1.6-2.6); Potassium 4.4 mmol/L (3.3-5.1); Sodium 137 mmol/L (135-145); Total Protein 7.3 g/dL (6.5-8.0)
--- NOTE | 2025-03-16 22:31 | PC.NURSE ---
NADINE Barber at bedside evaluating the patient.
--- NOTE | 2025-03-16 22:34 | ED_ITS ---
HPI - Wound/Laceration General Chief Complaint: Wound/Laceration Stated Complaint: R- Cheek- Ingrown Hair Time Seen by Provider: 03/16/25 21:07 Source: patient Mode of arrival: ambulatory Limitations: no limitations History of Present Illness ED Provider: Girish MCCOY HPI narrative: The patient is a 34-year-old male presenting to the ED reporting 2 days ago he felt some pain and warmth on his right cheek, patient reports he felt fatigued and fell asleep, upon waking he noted white purulent material draining from the area with increasing pain. The patient denies associated fever/chills, nausea, vomiting or other systemic complaint, patient denies any pain or irritation of the buccal mucosa on the affected side. The patient reports taking ibuprofen for pain who presents to the ED due to concern for infection. Related Data Previous Rx's ?Medication ?Instructions ?Recorded cyclobenzaprine 10 mg tablet 10 mg PO TID PRN muscle s pasm #14 03/03/25 tabs ibuprofen 600 mg tablet 600 mg PO Q8H PRN fever or p ain 03/03/25 #30 tabs clindamycin HCl 150 mg capsule 450 mg (3 x 150 mg) PO TID 5 days 03/16/25 (Cleocin HCl) #45 caps Allergies Allergy/AdvReac Type Severity Reaction Status Date / Time acetaminophen Allergy Unknown Verified 03/16/25 16:38 Penicillins Allergy Unknown Verified 03/16/25 16:38 Anesthesia Allergy Unknown Uncoded 03/16/25 16:38 Review of Systems 2 Review of Systems: Yes all other systems are reviewed and are negative PMFSH Past Medical History Medical History Substance abuse Asthma Social History Social History Alcohol intake: never 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 Vital signs as documented. HEAD: There is a approximate 1.5 cm x 2 cm ovoid area of superficial purulence noted to the right cheek at the border of the patient's avalos, there is mild drainage from the inferior aspect of the purulent area, there is surrounding erythema with associated tenderness. Head is otherwise atraumatic, normocephalic. EYES: EOMs grossly intact, pupils equal, conjunctiva clear, no exudate. ENT: Nares patent, no discharge. Airway patent, no audible stridor, visible mucosa is pink and moist without noted lesions, specifically no lesions or ulceration of the right buccal mucosa. NECK: trachea is midline, no obvious masses or gross abnormalities. CHEST: Symmetric movement, normal appearance. LUNGS: Non-labored work of breathing. CARDIAC: No evidence of hypoperfusion. ABDOMEN: Nondistended, no obvious injury. : Deferred. EXTREMITIES: Moves all extremities spontaneously without reported pain. No obvious injury or deformity noted. NEURO: Alert and oriented x3, CN II-XII appear grossly intact. Cerebellar Functioning grossly intact. Speech clear and appropriate. SKIN: Warm, dry, color appropriate. No rashes or lesions noted. Medical Decision Making Medical Decision Making MDM Narrative: 10:37 PM 03/16/2025 (Delores MCCOY): The patient is a 34-year-old male presenting to the ED for evaluation of a 1.5 cm x 2 cm ovoid area of subepidermal purulence with surrounding erythema noted on his right cheek which developed 2 days ago. The patient denies associated systemic complaint, arrived to the ED afebrile and normotensive. Laboratory evaluation reveals mild leukocytosis of 12,000, no evidence of significant anemia, electrolyte abnormality, or ALISE. Exam is consistent with developing superficial abscess vs carbuncle with surrounding cellulitis. The patient will be treated with antibiotics with MRSA coverage. We will also attempt to unroof the purulent area to allow drainage and improve pain. 12:05 AM 03/17/2025 (Delores MCCOY): Purulent area was partially unroofed with small amount of pus expressed, no indication for packing, patient will have bacitracin ointment applied and we will be discharged with plan as described above. Admission/Observation Consideration of admission/observation: Escalation of care including admission/observation considered Lab Data MDM Lab Attestation statement: I reviewed the patient's lab results. 03/16/25 17:12 03/16/25 17:12 Labs: Lab Results 03/16/25 Range/Units 17:12 WBC 12.1 H (4.8-10.8) X10*3/uL RBC 4.62 (4.60-5.80) X10*6/uL Hgb 13.3 L (14.0-18.0) g/dl Hct 40.1 L (42.0-52.0) % MCV 86.8 (80.0-98.0) fL MCH 28.8 (27.0-33.0) pg MCHC 33.2 (31.0-36.0) g/dl RDW 13.2 (11.0-16.0) % Plt Count 411 H (160-400) X10*3/uL MPV 8.9 L (9.4-12.4) fL Immature Gran % (Auto) 0.5 H (0.0-0.4) % Neut % (Auto) 63.9 (45-73) % Lymph % (Auto) 25.7 (20-40) % [place] % (Auto) 7.4 (2-11) % Eos % (Auto) 1.8 (0-4) % Baso % (Auto) 0.7 (0-2) % Lymph # (Auto) 3.1 (1.2-4.9) X10*3/uL [place] # (Auto) 0.9 (0.1-1.2) X10*3/uL Eos # (Auto) 0.2 (0.0-0.4) X10*3/uL Baso # (Auto) 0.1 (0.0-0.2) X10*3/uL Abs Immat Gran (auto) 0.06 H (0.00-0.03) X10*3/uL Absolute Neuts (auto) 7.7 (2.0-8.3) x10*3/uL Absolute Nucleated RBC 0.000 (0.0-0.012) X10*3/uL Nucleated RBC % (auto) 0.0 (0.0-0.2) /100WBC Sodium 137 (135-145) mmol/L Potassium 4.4 D (3.3-5.1) mmol/L Chloride 105 (96-108) mmol/L Carbon Dioxide 25 (22-29) mmol/L Anion Gap 11 L (12-20) BUN 13 (9-16) mg/dL Creatinine 0.80 (0.5-1.4) mg/dL Estim Creat Clear Calc 128.8 Estimated GFR > 60 Random Glucose 91 (60-115) mg/dL Calcium 9.5 (8.4-10.2) mg/dL Magnesium 2.2 (1.6-2.6) mg/dL Total Bilirubin 0.9 (0.0-1.0) mg/dL AST 34 (5-37) U/L ALT 20 (0-40) U/L Alkaline Phosphatase 99 (39-117) U/L Total Protein 7.3 (6.5-8.0) g/dL Albumin 4.4 (3.5-5.0) g/dL Prescription Management I considered prescription management with: Pain Medication and Antibiotic Procedures Abscess I/D Site: face Side (if applicable): right Sedation/analgesia: none Technique: other (Lifting of Scab/Eschar) Amount of fluid expressed (mL): 1 Sent for culture/gram staining?: No Irrigation: No Packing used?: none Discharge Plan Discharge Clinical Impression: Cellulitis and abscess of face Patient Disposition: Home, Self-Care Instructions: Cellulitis (ED), Abscess (ED) Additional Instructions: Thank you for choosing [facility]'s Emergency Department for your care today. Your exam today is consistent with an infection of a hair follicle which has developed into a abscess with infection of the surrounding skin. At this time there is no evidence of an acute process requiring admission to the hospital or continued ED observation, and it is safe to discharge you home. We are able to unroof some of the area of pus which should improve your discomfort and improve healing. Please keep the area clean. Please take clindamycin as prescribed until it is finished. Please apply bacitracin to the area to help treat the infection. You may take ibuprofen 600mg every 8 hours as needed for any additional pain. Please follow up with your primary care physician for re-evaluation, additional management of your symptoms, and continued preventative care. If you do not have a primary care physician, please call the [facility] at [phone] to establish a new primary care physician. While waiting to establish your new primary care physician, you can call our Walk-in Care [facility] at [phone] for non-emergency needs. Please return to the emergency department if you develop a severe or sudden change in your symptoms, a fever over 100.4 that does not improve with Tylenol or Ibuprofen, recurrent vomiting, or any other new or worsening symptoms or concerns. Prescriptions: New clindamycin HCl [Cleocin HCl] 150 mg capsule 450 mg PO TID 5 Days Qty: 45 0RF No Action ibuprofen 600 mg tablet 600 mg PO Q8H PRN (Reason: fever or pain) Qty: 30 0RF cyclobenzaprine 10 mg tablet 10 mg PO TID PRN (Reason: muscle spasm) Qty: 14 0RF Print Language: Ethiopian
[2025-03-16 22:48] VITALS: BP 120/76; PULSE 65; TEMP 36.2; O2SAT 99
== END 2025-03-17 01:00 | disposition home or self-care (01) ==
PROVIDERS: Physician Assistant Medical; Emergency Provider Emergency Medicine
DX: L02.01 Cutaneous abscess of face (principal); L03.211 Cellulitis of face
CPT/HCPCS: 10060; 36415; 80053; 83735; 85025; 99283; 99284

== ENCOUNTER 2025-04-14 15:59 | Emergency (ER) | payer MEDICAID, SELFPAY ==
[2025-04-14] VITALS (11 sets, daily range): BP systolic 86–114; BP diastolic 34–60; PULSE 49–62; RESP 11–18; O2SAT 95–99; BMI 26.8
--- NOTE | 2025-04-14 | ECG_ITS ---
Test Reason : OD Blood Pressure : */* mmHG Vent. Rate : 58 BPM Atrial Rate : 58 BPM P-R Int : 132 ms QRS Dur : 100 ms QT Int : 404 ms P-R-T Axes : 56 58 46 degrees QTcB Int : 396 ms Sinus bradycardia Early repolarization Otherwise normal ECG When compared with ECG of 02-Mar-2025 22:51, T wave amplitude has increased in Lateral leads Referred By: Generic ED Physician Electronically Signed By: Nguyễn Sloan
--- NOTE | 2025-04-14 16:22 | ED_ITS ---
HPI - Overdose General Chief Complaint: Overdose Stated Complaint: OD Time Seen by Provider: 04/14/25 16:12 Source: patient and EMS Mode of arrival: EMS Limitations: altered mental status History of Present Illness ED Provider: Blu Albarran PA-C HPI Narrative: 34 yo homeless male with history of substance use disorder presenting to the ER via EMS for evaluation after an unintentional overdose. Per EMS patient was unresponsive after smoking heroin and crack cocaine. He does not remember what happened after that. He thinks parking authority called 911. He was in a car. He woke up to EMS shaking him. He did not get narcan. He states he smoked heroin called [email or web address] and [employer]. he is lethargic and falling asleep during interview. denies pain, SOB, chest pain, abd pain. denies SI or attempt. MD complaint: accidental overdose Onset (ago): unknown Context: Accidental Overdose: wanted to get high Treatments Prior to Arrival: none Related Data Previous Rx's ?Medication ?Instructions ?Recorded cyclobenzaprine 10 mg tablet 10 mg PO TID PRN muscle s pasm #14 03/03/25 tabs ibuprofen 600 mg tablet 600 mg PO Q8H PRN fever or p ain 03/03/25 #30 tabs clindamycin HCl 150 mg capsule 450 mg (3 x 150 mg) PO TID 5 days 03/16/25 (Cleocin HCl) #45 caps Allergies Allergy/AdvReac Type Severity Reaction Status Date / Time acetaminophen Allergy Unknown Verified 04/14/25 16:14 Penicillins Allergy Unknown Verified 04/14/25 16:14 Anesthesia Allergy Unknown Uncoded 04/14/25 16:14 Review of Systems 2 Review of Systems: Yes all other systems are reviewed and are negative PMFSH Past Medical History Medical History Substance abuse Asthma Social History Social History Alcohol intake: never Use of substances other than those prescribed or required for medical reasons: Yes Substance Use Type: [employer]/Test [employer]k [employer] Drugs, Crack/Cocaine, Hallucinogens, Opiates and Other Advance Directives: No Advance Directives Information Provided: No Physical Exam 2 Exam: Exam: Appearance: lethargic male, sleeping on the stretcher, adequate respiratory effort Head: normocephalic, atraumatic. Eyes: Pupils equal, round and reactive to light. ENT: Pharynx normal. No tonsillar swelling or exudate. Neck: Normal inspection. Neck supple. CVS: Normal heart rate and rhythm. Pulses normal. Respiratory: No respiratory distress. Breath sounds normal. Abdomen: Soft and nontender. +BS x4 Skin: Skin warm and dry. Normal skin color. Normal skin turgor. No rashes. Extremities: No lower extremity edema. No joint swelling. Superficial abrasions on the left upper arm, healing, appear old. no track fall Neuro/psych: Oriented X 3. moving all extremities spontaneously, lethargic Vital Signs: Vital Signs: Last Vital Signs Temp 97.9 F 04/15/25 02:56 Pulse 62 04/15/25 02:56 Resp 16 04/15/25 02:56 BP 122/79 04/15/25 02:56 Pulse Ox 100 04/15/25 02:56 O2 Del Method Room Air 04/15/25 02:56 BMI result Body Mass Index 26.8 Course Reevaluation(s) Reevaluation #1: BP soft in the 80s. denies dizziness. suspected to be related to drug use. possible dehydration plan to place PIV, give IVF bolus and check labs will monitor closely Time: 17:04 Reevaluation #2: BP improving with IVF. continues to deny symptoms. mentating better chemistry is unremarkable. Time: 17:47 Reevaluation #3: BP 103/56 with MAP 68. continues to be lethargic but arousable. 1st liter done. will order a 2nd Time: 17:57 Additional Reevaluation(s): 3:56 AM 04/15/2025 (Delores MCCOY): The patient was signed out to this provider at shift change at approximately 18:00. The patient is a 34-year-old male presenting to the ED for evaluation after a opiate overdose. The patient was noted in the ED to have soft blood pressure and borderline bradycardia, patient received IV fluid hydration with improvement in blood pressure. At time of sign-out patient is pending reassessment and appropriateness for discharge. Throughout this provider's shift the patient has been calm and cooperative, with no recurrent hypotension, intermittent bradycardia into the 50s with spontaneous resolution. Patient has been observed for over 11 hours and has not required additional intervention or IV fluid. Patient is currently sleeping comfortably, in no acute distress. Patient is now appropriate for discharge home, will be discharged with take home Narcan. Medications Administered Discontinued Medications Generic Name Dose Route Start Last Admin Trade Name Mikal PRN Reason Stop Dose Admin Sodium Chloride 1,000 mls @ 999 mls/hr 04/14/25 17:15 04/14/25 18:39 Ns IV 04/14/25 18:15 Infused .Q1H1M [facility] Infusion Sodium Chloride 1,000 mls @ 999 mls/hr 04/14/25 18:00 04/14/25 20:13 Ns IVCONT 04/14/25 19:00 Infused .Q1H1M [facility] In[facility] Naloxone HCl 8 mg 04/14/25 16:27 04/14/25 17:23 Naloxone Hcl Nasal Take Home 4 Mg [place] NOSTRILALT 04/14/25 16:28 8 mg ONCE ONE Administration Medical Decision Making Medical Decision Making [facility] Narrative: 34 yo male with history of polysubstance use disorder coming in after an overdose. no narcan given resp effort adequate, lethargic but answering questions, says he feels fine will monitor closely. noted to be hypotensive and bradycardic HR 50s, appears sinus. suspect drug related. IV established and IVF bolus started with improvement in hemodynamics. Differential Diagnosis Differential Diagnoses: The differential diagnosis associated with the presentation includes polysubstance overdose, substance use disorder, hypoglycemia hypotension likely due to drug effects and hydration, low suspicion for sepsis or cardiogenic etiology Admission/Observation Consideration of admission/observation: Escalation of care including admission/observation considered Lab Data [facility] Lab Attestation statement: I reviewed the patient's lab results. no significant electrolytes abnormality, trop not c/w ischemia 04/14/25 17:08 04/14/25 17:08 Labs: Lab Results 04/14/25 04/14/25 Range/Units 17:08 23:05 WBC 10.4 (4.8-10.8) X10*3/uL RBC 4.32 L (4.60-5.80) X10*6/uL Hgb 12.3 L (14.0-18.0) g/dl Hct 37.1 L (42.0-52.0) % MCV 85.9 (80.0-98.0) fL MCH 28.5 (27.0-33.0) pg MCHC 33.2 (31.0-36.0) g/dl RDW 13.2 (11.0-16.0) % Plt Count 302 D (160-400) X10*3/uL MPV 9.3 L (9.4-12.4) fL Immature Gran % (Auto) 0.3 (0.0-0.4) % Neut % (Auto) 59.6 (45-73) % Lymph % (Auto) 26.7 (20-40) % [place] % (Auto) 9.6 (2-11) % Eos % (Auto) 3.2 (0-4) % Baso % (Auto) 0.6 (0-2) % Lymph # (Auto) 2.8 (1.2-4.9) X10*3/uL [place] # (Auto) 1.0 (0.1-1.2) X10*3/uL Eos # (Auto) 0.3 (0.0-0.4) X10*3/uL Baso # (Auto) 0.1 (0.0-0.2) X10*3/uL Abs Immat Gran (auto) 0.03 (0.00-0.03) X10*3/uL Absolute Neuts (auto) 6.2 (2.0-8.3) x10*3/uL Absolute Nucleated RBC 0.000 (0.0-0.012) X10*3/uL Nucleated RBC % (auto) 0.0 (0.0-0.2) /100WBC Sodium 138 (135-145) mmol/L Potassium 4.2 (3.3-5.1) mmol/L Chloride 107 (96-108) mmol/L Carbon Dioxide 23 (22-29) mmol/L Anion Gap 12 (12-20) BUN 13 (9-16) mg/dL Creatinine 0.80 (0.5-1.4) mg/dL Estim Creat Clear Calc 124.6 Estimated GFR > 60 Random Glucose 127 H (60-115) mg/dL Calcium 8.7 D (8.4-10.2) mg/dL Magnesium 2.3 (1.6-2.6) mg/dL Total Bilirubin 0.4 (0.0-1.0) mg/dL Direct Bilirubin 0.1 (0.0-0.5) mg/dL AST 41 H (5-37) U/L ALT 18 (0-40) U/L Alkaline Phosphatase 86 (39-117) U/L Total Protein 6.9 (6.5-8.0) g/dL Albumin 3.8 (3.5-5.0) g/dL Urine Color Yellow Urine Appearance Clear Urine pH 6.5 (5.0-9.0) Ur Specific [place] 1.025 (1.005-1.025) Urine Protein Trace (Neg-Trace) mg/dL Urine Glucose (UA) Negative (Negative) mg/dL Urine Ketones Trace (Negative) mg/dL Urine Blood Negative (Negative) Urine Nitrite Negative (Negative) Ur Leukocyte Esterase Moderate (2+) H (Negative) Urine RBC 0-2 (0-2) /HPF Urine WBC >50 H (0-5) /HPF Ur Squamous Epith Cells 0-2 (0-2) /HPF Urine Bacteria None Seen (None Seen) Hyaline Casts 0-2 (0-2) /LPF Urine Opiates Screen POSITIVE H (Not Detect) Ur Buprenorphine Scrn Not Detected (Not Detect) ng/mL Ur Oxycodone Screen Not Detected (Not Detect) ng/mL Urine Methadone Screen Not Detected (Not Detect) ng/mL Urine Fentanyl Screen POSITIVE H (Not Detect) Ur Barbiturates Screen Not Detected (Not Detect) Ur Phencyclidine Scrn Not Detected (Not Detect) Ur Amphetamines Screen Not Detected (Not Detect) U Benzodiazepines Scrn Not Detected (Not Detect) Urine Cocaine Screen POSITIVE H (Not Detect) U Marijuana (THC) Screen POSITIVE H (Not Detect) Independent Interpretation I performed an independent interpretation of an: EKG Interpretation: EKG with sinus bradycardia, HR 58, early repolarization, normal QTc, normal ND interval Independent Historian Clinical information obtained from an independent historian. History obtained from or confirmed by: EMS External Record Review External record reviewed: Outpatient record, Prior outpatient labs and Prior outpatient radiology Prescription Management I considered prescription management with: Other (Narcan) Chronic Conditions Patient?s care impacted by: Other (polysubstance use disorder) Social Determinants Patient?s care significantly limited by Social Determinants of Health including: Inadequate housing and Problems related to primary support group Critical Care Time Critical Care Time Critical Care Time: Yes Total Critical Care Time: 33 Attestation: I have personally provided critical care time exclusive of time spent on separately billable procedures. Time includes review of lab data, radiology results, discussion with consultants, and monitoring for potential decompensation. Intervention performed as documented. Discharge Plan Discharge Clinical Impression: Acute hypotension Drug overdose Qualifiers: Encounter type: initial encounter Injury intent: accidental or unintentional Q ualified Code(s): T50.901A - Poisoning by unspecified drugs, medicaments and biological substances, accidental (unintentional), initial encounter Patient Disposition: Home, Self-Care Instructions: Adult Overdose (ED) Additional Instructions: Thank you for choosing [facility]'s Emergency Department for your care today. At this time there is no evidence of an acute process requiring admission to the hospital or continued ED observation, and it is safe to discharge you home. You were seen in the emergency department today for evaluation of a suspected opiate overdose. Please do not use heroin or other narcotics as they are generally not good for your health and can put you at risk for respiratory arrest, anoxic brain injury, severely decreased quality of life, and potentially an otherwise avoidable . Please make use of all available personal and community-based resources to attempt to become sober from recreational drugs. Please stay well hydrated and get plenty of rest. Please follow up with your primary care physician for re-evaluation, additional management of your symptoms, and continued preventative care. If you do not have a primary care physician, please call the [facility] at [phone] to establish a new primary care physician. While waiting to establish your new primary care physician, you can call our Walk[facility]in [facility] at [phone] for non-emergency needs. Please return to the emergency department if you develop a severe or sudden change in your symptoms, a fever over 100.4 that does not improve with Tylenol or Ibuprofen, recurrent vomiting, or any other new or worsening symptoms or concerns. Prescriptions: No Action ibuprofen 600 mg tablet 600 mg PO Q8H PRN (Reason: fever or pain) Qty: 30 0RF cyclobenzaprine 10 mg tablet 10 mg PO TID PRN (Reason: muscle spasm) Qty: 14 0RF clindamycin HCl [Cleocin HCl] 150 mg capsule 450 mg PO TID 5 Days Qty: 45 0RF Print Language: Maltese
[2025-04-14 17:13] LABS: Hematocrit 37.1 % (42.0-52.0); Hemoglobin 12.3 g/dl (14.0-18.0); Imm Gran Abs Auto 0.03 X10*3/uL (0.00-0.03); Imm Gran Pct Auto 0.3 % (0.0-0.4); Lymphocytes Absolute Auto 2.8 X10*3/uL (1.2-4.9); MANUAL DIFF FLAG NO; Mean Corpuscular HGB Conc 33.2 g/dl (31.0-36.0); Mean Corpuscular Hemoglobin 28.5 pg (27.0-33.0); Mean Corpuscular Volume 85.9 fL (80.0-98.0); NRBC Abs Auto 0.000 X10*3/uL (0.0-0.012); NRBC Pct Auto 0.0 /100WBC (0.0-0.2); Platelet Count 302 X10*3/uL (160-400); Red Blood Count 4.32 X10*6/uL (4.60-5.80); White Blood Count 10.4 X10*3/uL (4.8-10.8)
[2025-04-14] MEDS: Naloxone HCl Nasal TAKE HOME 4 MG SPRAY 8 MG NOSTRILALT (17:23)
[2025-04-14 17:37] LABS: Alanine Aminotransferase 18 U/L (0-40); Albumin Level 3.8 g/dL (3.5-5.0); Alkaline Phosphatase 86 U/L (39-117); Anion Gap 12 (12-20); Aspartate Amino Transferase 41 U/L (5-37); Blood Urea Nitrogen 13 mg/dL (9-16); Calcium 8.7 mg/dL (8.4-10.2); Carbon Dioxide 23 mmol/L (22-29); Chloride 107 mmol/L (96-108); Creatinine Clr Calc Pharmacy 124.6; Estimated Glomerular Filt Rate > 60; Magnesium 2.3 mg/dL (1.6-2.6); Potassium 4.2 mmol/L (3.3-5.1); Sodium 138 mmol/L (135-145); Total Protein 6.9 g/dL (6.5-8.0)
--- OUTSIDE RECORDS SUMMARY | 2025-04-14 21:06 | XMS_ITS | Clinical Summary ---
Author Organization [employer] Address [address] [facility] [address] [place] [address] Care Team Providers Care Intake Clinician Name Role Phone Unavailable Primary Care Provider Unavailabl e Allergies No known active allergies Medications ibuprofen 400 MG tabletIndication s:Opioid type dependence, continuous (CMS/HCC) Take 1 tablet (400 mg) by mouth every 6 (six) hours if needed for moderate pain or fever for up to 8 doses. 8 tablet 2 Active ondansetron (Zofran) 4 MG tabletIndication s:Opioid type dependence, continuous (CMS/HCC) Take 1 tablet (4 mg) by mouth every 8 (eight) hours if needed for nausea or vomiting for up to 8 doses. 8 tablet 2 Active nicotine polacrilex (Commit) 4 MG lozengeIndicatio ns:Tobacco dependence Dissolve 1 lozenge (4 mg) in the mouth every 2 (two) hours if needed for smoking cessation. 100 lozenge 2 Active nicotine (Nicoderm, Step 3) 7 MG/24HR patchIndications :Tobacco dependence Place 1 patch on the skin 1 (one) time each day at the same time. 30 patch 2 Active hydrOXYzine pamoate (Vistaril) 50 MG capsuleIndicatio ns:Opioid type dependence, continuous (CMS/HCC) Take 1 capsule (50 mg) by mouth every 6 (six) hours if needed for anxiety for up to 8 doses. 8 capsule 2 Active Spacer/Aero-Hold ing Chambers (OptiChamber Jillian) miscIndications: Uncomplicated asthma, unspecified asthma severity, unspecified whether persistent 1 each every 4 (four) hours if needed (asthma). 1 each 2 Active albuterol 108 (90 Base) MCG/ACT inhalerIndicatio ns:Uncomplicated asthma, unspecified asthma severity, unspecified whether persistent Inhale 2 puffs every 4 (four) hours if needed for wheezing or shortness of breath. 18 g 1 Active Active Problems Problem Noted Date Diagnosed Date Opioid dependence, uncomplicated 08/20/2022 PTSD (post-traumatic stress disorder) 08/20/2022 Tobacco dependence 08/20/2022 Asthma 08/20/2022 Homelessness 08/20/2022 Immunizations Immunization Administration Dates Next Due Moderna Covid-19 Vaccine 12+ 09/10/2022 Moderna Covid-19 Vaccine 6+ Bivalent 11/04/2022 Social History Tobacco Use Types Packs/Day Years Used Date Smoking Tobacco: Every Day Cigarettes Smokeless Tobacco: Never Tobacco Cessation:Ready to Q uit: Not Asked; Counseling Given: Not Answered Sex and Gender Information Value Date Recorded Sex Assigned at Male 08/20/2022 1:25 PM EST Legal Sex Male 1:23 PM EST Gender Identity Male 08/20/2022 1:25 PM EST Sexual Orientation Don't know 08/20/2022 1: 25 PM EST Plan of Treatment Health Maintenance Due Date Last Done Comments Depression Screening 1989 HIV Screening 1989 Lipid Panel 1989 SDOH Screening 1989 Disability Screening 1989 Alcohol/Substance Use Screening 2001 Family Planning (PISQ) 2004 HPV Vaccines (1 - Male 3-dos e series) 2004 Hepatitis C Screening 11/09/2007 DTaP/Tdap/Td Vaccines (1 - Tdap) 2008 Hepatitis B Vaccines (1 of 3 - 19+ 3-dose series) 2008 Pneumococcal Vaccine: Pediatrics (0 to 5 Years) and At-Risk Patients (6 to 49) Years (1 of 2 - PCV) 2008 Tobacco Screening 08/20/2023 08/20/2022 COVID-19 Vaccine (4 - 2023-2 5 season) 2024 11/04/2022, 09/10/2022, 08/12/2022 Influenza Vaccine (#1) 2025 Zoster Vaccines (1 of 2) 11/09/2039 RSV Patients and Patients Aged 60 years or older (1 - 1-dose 75+ series) 2064 HIB Vaccines Aged Out No longer eligi ble based on patient's age to complete this topic Hepatitis A Vaccines Aged Out No long er eligible based on patient's age to complete this topic IPV Vaccines Aged Out No longer eligi ble based on patient's age to complete this topic Meningococcal B Vaccine Aged Out No l onger eligible based on patient's age to complete this topic Meningococcal Vaccine Aged Out No fabiana stephanie eligible based on patient's age to complete this topic RSV under 20 months Aged Out No longe r eligible based on patient's age to complete this topic Rotavirus Vaccines Aged Out No longer eligible based on patient's age to complete this topic Insurance [facility] [address] FULL
[2025-04-14 23:23] LABS: Appearance Urine Clear; Glucose Urine UA Negative (Negative); PH 6.5 (5.0-9.0); Specific Gravity - Urine 1.025 (1.005-1.025); UMIC TRIGGER UACC YES
[2025-04-14 23:26] LABS: Cannabinoid Screen Urine POSITIVE (Not Detect)
[2025-04-14 23:29] LABS: UACC Culture Trigger YES
--- NOTE | 2025-04-14 23:56 | PC.NURSE ---
assumed care of ptpt ambulated to BR with tech, given food to eat, VS WNL.
[2025-04-15 02:56] VITALS: BP 122/79; PULSE 62; RESP 16; TEMP 36.6; O2SAT 100
[2025-04-15 06:39] VITALS: BP 122/79; PULSE 62; RESP 16; TEMP 36.6; O2SAT 100
== END 2025-04-15 06:41 | disposition home or self-care (01) ==
PROVIDERS: Physician Assistant; Emergency Provider Emergency Medicine Emergency Medical Services
DX: T65.91XA Toxic effect of unspecified substance, accidental (unintentional), initial encounter (principal); R40.4 Transient alteration of awareness; Y92.9 Unspecified place or not applicable
CPT/HCPCS: 36415; 80048; 80076; 80307; 81001; 83735; 85025; 87086; 93005; 96360; 96361; 99285

== ENCOUNTER → 2025-04-14 16:18 | Outpatient (BNV) | payer MEDICAID, SELFPAY | PROVIDERS: Emergency Provider Emergency Medicine Emergency Medical Services; Visit Provider Internal Medicine Cardiovascular Disease | DX: R00.1 Bradycardia, unspecified (principal) | CPT/HCPCS: 93010 ==